=== PATIENT | male | born 1965 | race Caucasian/White ===

== ENCOUNTER 2020-06-19 09:14 | Outpatient (CLI) | payer BC, SELFPAY | END 2020-06-19 09:15 | disposition home or self-care (01) | LOC: ANHCOVIDVC 09:14 | PROVIDERS: PCP Internal Medicine | DX: Z23 Encounter for immunization (principal) | CPT/HCPCS: 0001A; 91300 ==

== ENCOUNTER 2020-07-10 09:15 | Outpatient (CLI) | payer BC, SELFPAY | END 2020-07-10 09:16 | disposition home or self-care (01) | LOC: ANHCOVIDVC 09:15 | PROVIDERS: PCP Internal Medicine | DX: Z23 Encounter for immunization (principal) | CPT/HCPCS: 0002A; 91300 ==

== ENCOUNTER 2022-06-05 18:10 | Emergency (ER) | payer BC, SELFPAY ==
[2022-06-05 18:18] VITALS: BP 136/91; PULSE 109; RESP 16; TEMP 36.4; O2SAT 97
--- NOTE | 2022-06-05 18:19 | ED.URI ---
HPI - URI/Sore Throat General Chief Complaint: Upper Respiratory Infection Stated Complaint: fever,cov pos,fatigue,cough,congestion Time Seen by Provider: 06/05/22 18:19 Source: patient Mode of arrival: ambulatory Limitations: no limitations History of Present Illness HPI Narrative: 56-year-old male presents with complaint of cough, chest congestion, postnasal drainage, fatigue, body aches starting yesterday. Afebrile. Taking any nijr-mrm-gnomzxd medications to treat his symptoms. States that he took a home COVID test today that was positive. Is concerned that the test was an accurate because it was . Patient would like and other COVID test at [facility]. He denies chest pain and shortness of breath. He has been COVID vaccinated. He last had COVID in 2019. All systems reviewed and negative except as noted above. Related Data Home Medications Medication Instructions Recorded Confirmed cholecalciferol (vitamin D3) 50 2,000 unit PO DAILY 05/20/20 01/22/22 mcg (2,000 unit) capsule Saccharomyces boulardii 250 mg 5,000 mmu cells PO DAILY 11/15/21 01/22/22 capsule (Daily Probiotic (S. boulardii)) fluticasone propionate 50 2 spray intranasal DAILY 11/15/21 01/22/22 mcg/actuation nasal spray,suspension psyllium husk 0.4 gram capsule 0.4 g PO DAILY 11/15/21 01/22/22 (Daily Fiber) Allergies Allergy/AdvReac Type Severity Reaction Status Date / Time latex Allergy Unknown Feels Verified 12/28/21 10:09 different levofloxacin Allergy Unknown Increased Verified 12/28/21 10:09 anxiety mold Allergy Unknown Unknown Verified 12/28/21 10:09 Review of Systems Review of Systems: CONSTITUTIONAL: Denies fever, chills, or sweats. EYES: Denies visual changes, redness, or discharge. ENT: Reports rhinorrhea, congestion. Denies sore throat, or otalgia. CARDIOVASCULAR: Denies chest pain, palpitations, or edema. RESPIRATORY: Denies cough or dyspnea. GASTROINTESTINAL: Denies abdominal pain, nausea, vomiting, or diarrhea. GENITOURINARY: Denies dysuria or hematuria. SKIN: Denies rash or itching. MUSCULOSKELETAL: Denies back pain, joint pain. Reports myalgia. NEUROLOGIC: Reports headache. Denies numbness, or weakness. PSYCHIATRIC: Denies anxiety or depression. All other systems reviewed are negative, except as documented in HPI. [facility] Past Medical History Medical History (Updated 06/05/22 @ 18:33 by Paula Daugherty NP) Cyst TRAVON (generalized anxiety disorder) History of skin cancer Morbid obesity Vitamin D deficiency Surgical History Surgical History (Updated 01/19/22 @ 10:06 by Siri Keita) Hx of local excision of skin lesion Excision of 2 epidermal back cysts 12/28/21. Family History Family History Father Hypertension Mother Family history of transient ischemic attacks Social History Social History Smoking status: Never smoker Alcohol intake: current Comments At time of signature, agree with nursing past medical, surgical, social and family history. There is no relevant family history pertinent to the presenting complaint. Exam Narrative: GENERAL: This is a well-nourished, well-developed patient. Patient ill-appearing but in no distress. HEAD: normocephalic, atraumatic. EYES: PERRL. Sclera clear/white. Vision is grossly intact. EARS: External ears normal, auditory canals clear and without drainage, TMs normal without perforation. Hearing grossly intact. NOSE: External nose normal with clear nasal drainage with erythema to both nares. THROAT: Mucous membranes moist, postnasal drainage. NECK: Neck supple, non-tender without lymphadenopathy, masses or thyromegaly. CARDIOVASCULAR: Regular rate and rhythm without murmurs, gallops, or rubs. RESPIRATORY: Clear to auscultation. Breath sounds equal bilaterally. No wheezes, rales, or rhonchi. SKIN: warm, Dry, intact wit
== END 2022-06-05 18:37 | disposition home or self-care (01) ==
PROVIDERS: Emergency Provider Nurse Practitioner Family; PCP Internal Medicine
DX: U07.1 COVID-19 (principal); E66.01 Morbid (severe) obesity due to excess calories; Z68.43 Body mass index [BMI] 50.0-59.9, adult; E55.9 Vitamin D deficiency, unspecified; Z85.828 Personal history of other malignant neoplasm of skin
CPT/HCPCS: 87426; 99213; C9803; G0463

== ENCOUNTER 2023-09-28 18:45 | Emergency (ER) | payer BC, SELFPAY ==
--- NOTE | 2023-09-28 18:51 | ED.URI ---
HPI - URI/Sore Throat General Chief Complaint: Upper Respiratory Infection Stated Complaint: Sinus Infection Symptoms Time Seen by Provider: 09/28/23 19:05 Source: patient, RN notes reviewed and old records reviewed Mode of arrival: ambulatory Limitations: no limitations History of Present Illness HPI Narrative: 57 year old male who presents to [facility] care with complaints of sinus congestion and chest congestion since late Monday early Monday with low grade fevers since Monday. Patient reports that he having difficulty sleeping due to congestion. Patient reports that he did home COVID test which was negative. He states that he has taken some OTC cold medication that contains Quafenasin, decongestant and also some Tylenol with no improvement in his symptoms. Patient reports that he was recently started on some low dose Lasix daily for his edema to his lower legs and feet. Patient reports no acute shortness of breath no tachypnea noted SAO2 94% on room air, reports past history of Bronchitis MD elicited complaint: fever, cough, rhinorrhea, nasal congestion and other (chest congestion ) Pertinent past history: other (Bronchitis) Onset (ago): day(s) Able to tolerate fluids by mouth: Yes Treatments prior to arrival: acetaminophen and cold medicine Related Data Home Medications Medication Instructions Recorded Confirmed cholecalciferol (vitamin D3) 50 2,000 unit PO DAILY 05/20/20 09/05/23 mcg (2,000 unit) capsule Saccharomyces boulardii 250 mg 5,000 mmu cells PO DAILY 11/15/21 09/05/23 capsule (Daily Probiotic (S. boulardii)) fluticasone propionate 50 2 spray intranasal DAILY 11/15/21 09/05/23 mcg/actuation nasal spray,suspension psyllium husk 0.4 gram capsule 0.4 g PO DAILY 11/15/21 09/05/23 (Daily Fiber) Allergies Allergy/AdvReac Type Severity Reaction Status Date / Time latex Allergy Unknown Feels Verified 09/28/23 18:55 different levofloxacin Allergy Unknown Increased Verified 09/28/23 18:55 anxiety mold Allergy Unknown Unknown Verified 09/28/23 18:55 Review of Systems Review of Systems: CONSTITUTIONAL: Reports some malaise,no chills, sweats, low grade fever. EYES: Denies visual changes, redness, or discharge. ENT: Reports rhinorrhea, congestion, sinus pain, no otalgia and no sore throat. CARDIOVASCULAR: Denies chest pain, palpitations, or edema. RESPIRATORY: Reports cough.? Denies acute dyspnea. GASTROINTESTINAL: Denies abdominal pain, nausea, vomiting, diarrhea SKIN: Denies rash or itching. MUSCULOSKELETAL: Denies myalgia. NEUROLOGIC: Denies headache. All systems reviewed & are unremarkable except as noted in HPI and below PMFSH Past Medical History Medical History (Updated 09/28/23 @ 19:30 by Dorene Patel NP) Bronchitis Cyst Elevated blood pressure reading TRAVON (generalized anxiety disorder) History of skin cancer Lower extremity edema Morbid obesity Vitamin D deficiency Surgical History Surgical History H/O removal of cyst upper back/shoulder Hx of local excision of skin lesion Excision of 2 epidermal back cysts 12/28/21. Family History Family History Father Hypertension Mother Family history of transient ischemic attacks Social History Social History Smoking status: Never smoker Alcohol intake: current Comments At time of signature, agree with nursing past medical, surgical, social and family history. There is no relevant family history pertinent to the presenting complaint Exam Narrative: GENERAL: Well-appearing, well-nourished, obese and in no acute distress. HEAD: Normocephalic EYES: PERRLA, conjunctivae clear ENT: Nares swollen, turbinates edematous and erythematous, clear discharge sinus pressure Mucous membranes moist. TM pearly caro with dull light reflex
[2023-09-28 18:59] VITALS: BP 158/94; PULSE 88; RESP 16; TEMP 36; O2SAT 94
== END 2023-09-28 19:27 | disposition home or self-care (01) ==
PROVIDERS: Emergency Provider Registered Nurse; PCP Internal Medicine
DX: J40 Bronchitis, not specified as acute or chronic (principal); E66.01 Morbid (severe) obesity due to excess calories; Z68.41 Body mass index [BMI] 40.0-44.9, adult; E55.9 Vitamin D deficiency, unspecified; Z85.828 Personal history of other malignant neoplasm of skin
CPT/HCPCS: 99213; G0463

== ENCOUNTER 2023-10-05 09:37 | Outpatient (CLI) | payer BC, SELFPAY ==
[2023-10-05 13:25] LABS: Basophils Absolute Auto 0.1 K/mm3 (0.0-0.1); Basophils Percent Auto 1.1 % (0.2-1.2); Eosinophils Absolute Auto 0.3 K/mm3 (0-0.3); Eosinophils Percent Auto 3.8 % (0-4.4); Hematocrit 44.4 % (42.0-52.0); Hemoglobin 14.7 g/dL (14.0-18.0); Immature Granulocyte Absolute 0.04 K/mm3 (0.00-0.031); Immature Granulocyte Percent A 0.6 % (0-0.5); Lymphocytes Absolute Auto 2.55 K/mm3 (0.9-3.2); Lymphocytes Percent Auto 39.2 % (18.3-44.2); Mean Corpuscular HGB Conc 33.1 g/dl (32-36); Mean Corpuscular Hemoglobin 32.5 pg (26-34); Mean Corpuscular Volume 98.2 fl (80-100); Mean Platelet Volume 9.8 fl (7.4-10.4); Monocytes Absolute Auto 0.5 K/mm3 (0.1-0.6); Monocytes Percent Auto 8.3 % (2.6-8.5); Neutrophils Absolute Auto 3.1 K/mm3 (1.3-6.7); Platelet Count Result 288 k/mm3 (150-375); Red Blood Count 4.52 M/mm3 (4.6-6.20); Red Cell Distribution Width 13.8 % (11.5-14.5); White Blood Count 6.5 K/mm3 (4.5-10.0)
[2023-10-05 13:30] LABS: Add Urine Microscopic? NO; Appearance Urine Clear (Clear); Bilirubin Urine Negative (Negative); Blood Urine Negative (Negative); Color Urine Yellow (Yellow); Glucose Urine UA Negative (Negative); Ketones Urine Negative (Negative); Leukocyte Esterase Ur Negative LEU/UL (Negative); Nitrate Urine Negative (Negative); Protein Urine Negative (Negative); Specific Grav Ur 1.018 (1.001-1.035); Urobilinogen Urine 0.2 mg/dL (<2.0); pH Urine 5.5 (5.0-9.0)
[2023-10-05 13:42] LABS: Anion Gap 11 mmol/L (4-12); Bilirubin,Total 0.7 mg/dL (0.2-1.3); Blood Urea Nitrogen 16 mg/dL (9-20); Calcium 8.9 mg/dL (8.4-10.2); Carbon Dioxide 26 mmol/L (22-30); Chloride 97 mmol/L (98-107); Estimated Glomerular Filt Rate > 60; Glucose 112 mg/dL (65-110); Potassium 4.3 mmol/L (3.4-5.0); Sodium 134 mmol/L (137-145)
[2023-10-05 13:43] LABS: Alanine Aminotransferase 48 U/L (6-50); Albumin Level 4.2 g/dL (3.5-5.1); Alkaline Phosphatase 67 U/L (38-126); Aspartate Amino Transferase 75 U/L (17-59); Cholesterol 189 mg/dL (0-200); HDL Direct 31 mg/dL; Triglycerides 175 mg/dL (<150)
[2023-10-05 13:53] LABS: LDL Cholesterol Direct 106 mg/dL
[2023-10-05 14:09] LABS: Prostate Specific Antigen 0.2 ng/mL (< OR = 4.0)
[2023-10-05 14:43] LABS: Hemoglobin A1C 6.3 % (<5.7)
[2023-10-06 08:15] LABS: LH 4.8 mIU/mL (1.5-9.3)
[2023-10-09 12:44] LABS: Testosterone Free 48.2 pg/mL (35.0-155.0); Testosterone Total 333 ng/dL (250-1100)
[2023-10-12 18:33] LABS: Apolipoprotein B 120 mg/dL
== END 2023-10-05 09:38 | disposition home or self-care (01) ==
LOC: ANHGOSHLAB 09:39
PROVIDERS: PCP Internal Medicine; Visit Provider Internal Medicine
DX: E29.1 Testicular hypofunction (principal); R60.0 Localized edema; E66.01 Morbid (severe) obesity due to excess calories; R53.83 Other fatigue; Z12.5 Encounter for screening for malignant neoplasm of prostate
CPT/HCPCS: 36415; 80053; 80061; 81003; 82172; 83002; 83036; 84153; 84402; 84403; 84443; 85025; G0103

== ENCOUNTER 2023-12-07 08:39 | Outpatient (CLI) | payer BC, SELFPAY ==
[2023-12-25 13:43] VITALS: BMI 54.8
--- NOTE | 2023-12-25 13:43 | WPDHOMESLEEP ---
Sleep Study - Home Unattended Date of Study: 12/07/23 Ordering Provider: Archie Massey DO Interpreting Provider: Miracle Gordon DO Home Sleep Study Type: Watch PAT Height: 1.93 m Weight: 204.117 kg Body Mass Index: 54.8 Neck Circumference (inches): 22 Reason for Sleep Study Daytime fatigue Sleep History The patient did not complete the sleep intake questionnaire because he did not complete the home sleep test. [facility] Past Medical History Medical History Bronchitis Cyst Elevated blood pressure reading TRAVON (generalized anxiety disorder) History of skin cancer Hyperglycemia Long-term current use of testosterone cypionate Lower extremity edema Morbid obesity Vitamin D deficiency Surgical History Surgical History H/O removal of cyst upper back/shoulder Hx of local excision of skin lesion Excision of 2 epidermal back cysts 12/28/21. Family History Family History Father Hypertension Mother Family history of transient ischemic attacks Social History Social History Smoking status: Never smoker Alcohol intake: current Current Housing: Decline to Answer Concerned About Future Housing: Decline to Answer Difficulty Paying Gas/Electric Bills: Decline to Answer Difficulty Paying for Meds: Decline to Answer Currently Unemployed: Decline to Answer Education: Decline to Answer Difficulty w/ Childcare or Family Care: Decline to Answer Medications Home Medications Medication Instructions Recorded Confirmed Type cholecalciferol (vitamin D3) 50 2,000 unit PO DAILY 05/20/20 10/10/23 History mcg (2,000 unit) capsule Saccharomyces boulardii 250 mg 5,000 mmu cells PO DAILY 11/15/21 10/10/23 History capsule (Daily Probiotic (S. boulardii)) fluticasone propionate 50 2 spray intranasal DAILY 11/15/21 10/10/23 History mcg/actuation nasal spray,suspension psyllium husk 0.4 gram capsule 0.4 g PO DAILY 11/15/21 10/10/23 History (Daily Fiber) albuterol sulfate 90 mcg/actuation 2 puff inhalation QID PRN 09/28/23 10/10/23 Rx aerosol inhaler shortness of breath or wheezing #6.7 grams testosterone cypionate 200 mg/mL 140 mg (0.7 mL) IM WEEKLY #10 mL 10/10/23 10/10/23 Rx intramuscular oil (Depo-Testosterone) furosemide 20 mg tablet 20 mg PO QAM #30 tabs 11/09/23 Rx Sleep Procedure The sleep study was completed using [employer]house[employer] a technically adequate device with seven channels: peripheral arterial tone, actigraphy, body position, snore, respiratory movement, pulse oximetry, sleep staging, and heart rate. Prior to using the device, the patient received verbal and written instructions for its application and was provided with the help desk phone number for additional telephonic instruction with 24-hour availability of qualified personnel to answer questions. The study was scored using [facility] guidelines. Sleep Architecture N/A Respiratory Analysis N/A Oximetry Data N/A Snoring Profile N/A Cardiac Profile N/A Assessment and Plan Assessment and Plan (1) Fatigue: Qualifiers: Fatigue type: chronic, unspecified Qualified Code(s): R53.82 - Chronic fatigue, unspecified Code(s): R53.83 - Other fatigue Status: Acute Assessment and Plan: The patient was unable to complete the study due to feeling claustrophobic. There was no data obtained. I recommend repeating the home sleep test in the future if his claustrophobia improves. Data The data obtained during this sleep study is adequate for interpretation. Certification This sleep study has been reviewed by a board certified sleep medicine physician.
== END 2023-12-20 14:22 | disposition home or self-care (01) ==
LOC: ANHCSM 08:39
PROVIDERS: PCP Internal Medicine; Visit Provider Internal Medicine
DX: R53.82 Chronic fatigue, unspecified (principal); G47.19 Other hypersomnia; E66.01 Morbid (severe) obesity due to excess calories; R53.83 Other fatigue
CPT/HCPCS: 99199

== ENCOUNTER 2024-02-22 14:50 | Outpatient (CLI) | payer OTHER, SELFPAY ==
[2024-02-22 19:25] LABS: Basophils Absolute Auto 0.1 K/mm3 (0.0-0.1); Eosinophils Absolute Auto 0.3 K/mm3 (0-0.3); Eosinophils Percent Auto 4.6 % (0-4.4); Hematocrit 50.9 % (42.0-52.0); Hemoglobin 17.1 g/dL (14.0-18.0); Immature Granulocyte Absolute 0.01 K/mm3 (0.00-0.031); Immature Granulocyte Percent A 0.1 % (0-0.5); Lymphocytes Absolute Auto 2.62 K/mm3 (0.9-3.2); Lymphocytes Percent Auto 36.8 % (18.3-44.2); Mean Corpuscular HGB Conc 33.6 g/dl (32-36); Mean Corpuscular Hemoglobin 32.1 pg (26-34); Mean Corpuscular Volume 95.7 fl (80-100); Mean Platelet Volume 9.6 fl (7.4-10.4); Monocytes Absolute Auto 0.6 K/mm3 (0.1-0.6); Monocytes Percent Auto 8.3 % (2.6-8.5); Neutrophils Absolute Auto 3.5 K/mm3 (1.3-6.7); Neutrophils Percent Auto 49.2 % (45.5-73.1); Platelet Count Result 281 k/mm3 (150-375); Red Blood Count 5.32 M/mm3 (4.6-6.20); Red Cell Distribution Width 13.7 % (11.5-14.5); White Blood Count 7.1 K/mm3 (4.5-10.0)
[2024-02-22 19:38] LABS: Alanine Aminotransferase 31 U/L (6-50); Albumin Level 4.2 g/dL (3.5-5.1); Alkaline Phosphatase 70 U/L (38-126); Anion Gap 1 mmol/L (4-12); Aspartate Amino Transferase 58 U/L (17-59); Bilirubin,Total 0.8 mg/dL (0.2-1.3); Blood Urea Nitrogen 15 mg/dL (9-20); Calcium 8.9 mg/dL (8.4-10.2); Carbon Dioxide 36 mmol/L (22-30); Chloride 97 mmol/L (98-107); Estimated Glomerular Filt Rate > 60; Glucose 102 mg/dL (65-110); Potassium 4.9 mmol/L (3.4-5.0); Sodium 134 mmol/L (137-145)
[2024-02-22 20:06] LABS: Prostate Specific Antigen 0.2 ng/mL (< OR = 4.0)
[2024-02-22 20:43] LABS: Hemoglobin A1C 6.1 % (<5.7)
== END 2024-02-22 14:51 | disposition home or self-care (01) ==
LOC: ANHGOSHLAB 14:54
PROVIDERS: PCP Internal Medicine; Visit Provider Internal Medicine
DX: E29.1 Testicular hypofunction (principal); Z79.890 Hormone replacement therapy; Z12.5 Encounter for screening for malignant neoplasm of prostate
CPT/HCPCS: 36415; 80053; 83036; 84153; 85025; G0103

== ENCOUNTER 2024-07-30 08:37 | Outpatient (CLI) | payer OTHER, SELFPAY ==
--- OUTSIDE RECORDS SUMMARY | 2024-07-30 08:53 | XMS_ITS | Referral Summary ---
Author Organization [facility] [place] [address] Address [address] [place] [phone] Care Team Providers Care American Sign Language Teacher Name Role Phone Archie Massey DO Primary Care Provider [phone]- [phone] Allergies Active Allergy Reactions Criticality Noted Date Comments Latex Anxiety,Eye irritation,Headache Low 04/21 Levofloxacin Anxiety Low 10/26/2021 Medications fluticasone propionate (FLONASE) 50 mcg/actuation nasal spray Administer 1 spray into each nostril daily Active vit D3-vit D-dipuhccis-pdj s [id number] muda-uye-ks-mg tablet Take by mouth Active polycarbophil (FIBERCON) 625 mg tablet Take 625 mg by mouth daily Active acidophilus-pec tin, citrus 100 million cell-10 mg capsule Take by mouth Activ e Active Problems No known active problems Social History Tobacco Use Types Packs/Day Years Used Date Smoking Tobacco: Never Smokeless Tobacco: Never Tobacco Cessation:Counseling Given: Not Answered Sex and Gender Information Value Date Recorded Sex Assigned at Not on file Legal Sex Male 10:27 AM CDT Gender Identity Male 10/26/2021 8:15 AM CDT Sexual Orientation Not on file Last Filed Vital Signs Vital Sign Reading Time Taken Comments Blood Pressure 148/90 04/09/2022 8:50 AM DEPUTY FIRE MARSHAL Pulse 92 04/09/2022 8:34 AM DEPUTY FIRE MARSHAL Temperature 36.9 C (98.4 F) 04/09/2022 8:34 AM DEPUTY FIRE MARSHAL Respiratory Rate 18 04/09/2022 8:34 AM DEPUTY FIRE MARSHAL Oxygen Saturation 96% 02/10/2022 2:17 PM DEPUTY FIRE MARSHAL Inhaled Oxygen Concentration - - Weight 215.4 kg (474 lb 14.4 oz) 04/09/2022 8:34 AM DEPUTY FIRE MARSHAL Height 193 cm (6' 3.98) 04/09/2022 8:34 AM DEPUTY FIRE MARSHAL Body Mass Index 57.84 04/09/2022 8:34 AM DEPUTY FIRE MARSHAL Plan of Treatment Not on file Insurance [employer] ACCESS CHOICE [employer] ACCESS CHOICE Care Teams American Sign Language Teacher Relationship Specialty Start Date End Date Archie Massey DO PCP - General Internal Medicine 10/26/21
--- OUTSIDE RECORDS SUMMARY | 2024-07-30 08:53 | XMS_ITS | Clinical Summary ---
Author Organization [facility] [place] [address] Address [address] [place] [phone] Care Team Providers Care Cnc Mill Set Up Operator Name Role Phone Archie Massey DO Primary Care Provider [phone]- [phone] Allergies Active Allergy Reactions Criticality Noted Date Comments Latex Anxiety,Eye irritation,Headache Low 04/21 Levofloxacin Anxiety Low 10/26/2021 Medications fluticasone propionate (FLONASE) 50 mcg/actuation nasal spray Administer 1 spray into each nostril daily Active vit D3-vit O-zavzsmqrd-hlb s [id number] ajnw-uer-qe-mg tablet Take by mouth Active polycarbophil (FIBERCON) [...] AM CDT Sexual Orientation Not on file Obstetrics History Last Filed Vital Signs Vital Sign Reading Time Taken Comments Blood Pressure 148/90 04/09/2022 8:50 AM STUDENT SERVICES ADVISOR Pulse 92 04/09/2022 8:34 AM STUDENT SERVICES ADVISOR Temperature 36.9 C (98.4 F) 04/09/2022 8:34 AM STUDENT SERVICES ADVISOR Respiratory Rate 18 04/09/2022 8:34 AM STUDENT SERVICES ADVISOR Oxygen Saturation 96% 02/10/2022 2:17 PM STUDENT SERVICES ADVISOR Inhaled Oxygen Concentration - - Weight 215.4 kg (474 lb 14.4 oz) 04/09/2022 8:34 AM STUDENT SERVICES ADVISOR Height 193 cm (6' 3.98) 04/09/2022 8:34 AM STUDENT SERVICES ADVISOR Body Mass Index 57.84 04/09/2022 8:34 AM STUDENT SERVICES ADVISOR Plan of Treatment Health Maintenance Due Date Last Done Comments Colon Cancer Screening-Colonoscopy 1964 Depression Screening 1964 Hepatitis C Screening 1964 Prostate Cancer Screening-PSA 1964 DTaP/Tdap/Td Vaccine (1 - Tdap) 12/24/1975 Hepatitis B Screening 1982 Regular Well Visit/Exam 18-64 1982 Zoster Vaccine (1 of 2) 2014 Covid-19 Vaccine ( season) 2023 01/21/2021, 07/10/2020, 06/19/2020 Influenza Vaccine (Season Ended) 2024 11/24/2022, 01/05/2021, 12/27/2019, Additional history exists Pneumococcal vaccine <65 Aged Out No longer eligible based on patient's age to complete this topic Insurance [employer] CHOICE Member Subscriber Plan / Payer (Ef fective 2021-Present) Name:Archie Cochran Relation to Subscriber:Self Name:Archie Cochran Payer ID:[id number] (NAIC) Type:[facility] Address: [facility] [address] [id number] [facility] ACCESS CHOICE Care Teams Cnc Mill Set Up Operator Relationship Specialty Start Date End Date Archie Massey DO PCP - General Internal Medicine 10/26/21
[2024-07-30 17:22] LABS: Alanine Aminotransferase 30 U/L (6-50); Albumin Level 4.3 g/dL (3.5-5.1); Alkaline Phosphatase 62 U/L (38-126); Anion Gap 11 mmol/L (4-12); Aspartate Amino Transferase 41 U/L (17-59); Basophils Absolute Auto 0.1 K/mm3 (0.0-0.1); Basophils Percent Auto 1.1 % (0.2-1.2); Bilirubin,Total 0.7 mg/dL (0.2-1.3); Blood Urea Nitrogen 20 mg/dL (9-20); Carbon Dioxide 25 mmol/L (22-30); Chloride 101 mmol/L (98-107); Eosinophils Absolute Auto 0.2 K/mm3 (0-0.3); Eosinophils Percent Auto 2.8 % (0-4.4); Estimated Glomerular Filt Rate > 60; Glucose 83 mg/dL (65-110); Hematocrit 51.2 % (42.0-52.0); Hemoglobin 16.5 g/dL (14.0-18.0); Immature Granulocyte Absolute 0.02 K/mm3 (0.00-0.031); Immature Granulocyte Percent A 0.3 % (0-0.5); Immature Platelet Fraction Pct 3.4 % (0.9-11.2); Lymphocytes Absolute Auto 2.22 K/mm3 (0.9-3.2); Lymphocytes Percent Auto 34.4 % (18.3-44.2); Mean Corpuscular HGB Conc 32.2 g/dl (32-36); Mean Corpuscular Hemoglobin 32.7 pg (26-34); Mean Corpuscular Volume 101.4 fl (80-100); Mean Platelet Volume 10.5 fl (7.4-10.4); Monocytes Absolute Auto 0.6 K/mm3 (0.1-0.6); Monocytes Percent Auto 8.8 % (2.6-8.5); Neutrophils Absolute Auto 3.4 K/mm3 (1.3-6.7); Neutrophils Percent Auto 52.6 % (45.5-73.1); Platelet Count Result 269 k/mm3 (150-375); Potassium 4.5 mmol/L (3.4-5.0); Red Blood Count 5.05 M/mm3 (4.6-6.20); Red Cell Distribution Width 14.7 % (11.5-14.5); Sodium 137 mmol/L (137-145); Total Protein 7.7 g/dL (6.3-8.2); White Blood Count 6.5 K/mm3 (4.5-10.0)
[2024-07-30 17:47] LABS: Prostate Specific Antigen 0.2 ng/mL (< OR = 4.0)
[2024-07-30 20:57] LABS: Platelet Estimate Adequate (Adequate)
[2024-07-30 20:58] LABS: Schistocytes None Seen
[2024-08-02 17:38] LABS: Testosterone Free 27.4 pg/mL (35.0-155.0); Testosterone Total 202 ng/dL (250-1100)
== END 2024-07-30 08:38 | disposition home or self-care (01) ==
LOC: ANHGOSHLAB 08:38
PROVIDERS: PCP Internal Medicine; Visit Provider Internal Medicine
DX: E29.1 Testicular hypofunction (principal); Z79.890 Hormone replacement therapy
CPT/HCPCS: 36415; 80053; 84153; 84402; 84403; 85025; 85055

== ENCOUNTER 2024-11-27 09:53 | Outpatient (CLI) | payer OTHER, SELFPAY ==
[2024-11-27 11:03] LABS: Hematocrit 51.8 % (42.0-52.0); Hemoglobin 17.3 g/dL (14.0-18.0); Immature Granulocyte Percent A 0.3 % (0-0.5); Lymphocytes Absolute Auto 2.41 K/mm3 (0.9-3.2); Mean Corpuscular HGB Conc 33.4 g/dl (32-36); Mean Corpuscular Hemoglobin 32.6 pg (26-34); Mean Corpuscular Volume 97.7 fl (80-100); Nucleated Red Blood Cells Absolute Auto 0.000 K/mm3 (0.0-0.012); Nucleated Red Blood Cells Perc 0.0 % (0.0-0.2); Platelet Count Result 290 k/mm3 (150-375); Red Blood Count 5.30 M/mm3 (4.6-6.20); White Blood Count 7.0 K/mm3 (4.5-10.0)
[2024-11-27 11:07] LABS: Alanine Aminotransferase 30 U/L (6-50); Albumin Level 4.3 g/dL (3.5-5.1); Alkaline Phosphatase 60 U/L (38-126); Anion Gap 7 mmol/L (4-12); Aspartate Amino Transferase 48 U/L (17-59); Bilirubin,Total 1.3 mg/dL (0.2-1.3); Blood Urea Nitrogen 19 mg/dL (9-20); Calcium 9.2 mg/dL (8.4-10.2); Carbon Dioxide 26 mmol/L (22-30); Chloride 100 mmol/L (98-107); Estimated Glomerular Filt Rate > 60; Glucose 110 mg/dL (65-110); Potassium 4.5 mmol/L (3.4-5.0); Sodium 133 mmol/L (137-145); Total Protein 8.1 g/dL (6.3-8.2)
[2024-11-27 12:10] LABS: Hemoglobin A1C 5.7 % (<5.7)
[2024-11-30 01:07] LABS: Free Testosterone (Direct) 10.8 pg/mL (7.2-24.0)
== END 2024-11-27 09:54 | disposition home or self-care (01) ==
LOC: ANHGOSHLAB 09:54
PROVIDERS: PCP Internal Medicine; Visit Provider Nurse Practitioner
DX: E29.1 Testicular hypofunction (principal); R73.03 Prediabetes
CPT/HCPCS: 36415; 80053; 83036; 84402; 84403; 85025

== ENCOUNTER 2024-12-10 08:53 | Outpatient (NON) | payer OTHER, SELFPAY ==
--- NOTE | 2024-12-10 | S_PTH ---
PATIENT: Archie Cochran LOC: AN[facility]AB #:[id number] AGE/SX: 58/M ROOM: RE12/10/[address]: To Hernandez MD : 1965 BED: DIS: 12/10/2024 SPEC #: [id number] RECD: 12/12/24 09:04 STATUS: CRISTOBAL CLAYTON #: [id number] LEATHA: 12/10/24 00:[address]: To Hernandez DEPT: [facility] Surgical RECD BY: Karen Mo ENTERED: 12/12/24 09:06 SP TYPE: Surgical OTHR DR: Archie Massey DO Tissues: A - Skin Procedures: Hematoxylin and Eosin Stain Gross and Microscopic Level 4
--- OUTSIDE RECORDS SUMMARY | 2024-12-12 09:08 | XMS_ITS | Clinical Summary ---
Author Organization [facility] [place] [address] Address [address] [place] [phone] Care Team Providers Care Open Hearth Worker Name Role Phone Archie Massey DO Primary Care Provider Allergies Active Allergy Reactions Criticality Noted Date Comments Latex Anxiety,Eye irritation,Headache Low 04/21 Levofloxacin Anxiety Low 10/26/2021 Medications fluticasone propionate (FLONASE) 50 mcg/actuation nasal spray Administer 1 spray into each nostril daily Active vit D3-vit V-hhperzzrk-olr s [id number] ohoa-cha-hz-mg tablet Take by mouth Active polycarbophil (FIBERCON) [...] Comments Blood Pressure 148/90 04/09/2022 8:50 AM DRAPERY MAKER Pulse 92 04/09/2022 8:34 AM DRAPERY MAKER Temperature 36.9 C (98.4 F) 04/09/2022 8:34 AM DRAPERY MAKER Respiratory Rate 18 04/09/2022 8:34 AM DRAPERY MAKER Oxygen Saturation 96% 02/10/2022 2:17 PM DRAPERY MAKER Inhaled Oxygen Concentration - - Weight 215.4 kg (474 lb 14.4 oz) 04/09/2022 8:34 AM DRAPERY MAKER Height 193 cm (6' 3.98) 04/09/2022 8:34 AM DRAPERY MAKER Body Mass Index 57.84 04/09/2022 8:34 AM DRAPERY MAKER Plan of Treatment Health Maintenance Due Date Last Done Comments Colon Cancer Screening-Colonoscopy 1964 Depression Screening 1964 Hepatitis C Screening 1964 Prostate Cancer Screening-PSA 1964 DTaP/Tdap/Td Vaccine (1 - Tdap) 12/24/1975 Hepatitis B Screening 1982 Regular Well Visit/Exam 18-64 1982 Zoster Vaccine (1 of 2) 2014 Covid-19 Vaccine ( season) 2024 01/21/2021, 07/10/2020, 06/19/2020 Influenza Vaccine (#1) 2024 3, 01/05/2021, 12/27/2019, Additional history exists Pneumococcal vaccine <65 Aged Out No longer eligible based on patient's age to complete this topic Insurance [employer] CHOICE [employer] ACCESS CHOICE Care Teams Open Hearth Worker Relationship Specialty Start Date End Date Archie Massey DO PCP - General Internal Medicine 10/26/21
== END 2024-12-10 08:54 | disposition home or self-care (01) ==
PROVIDERS: PCP Internal Medicine; Visit Provider Otolaryngology
DX: C44.212 Basal cell carcinoma of skin of right ear and external auricular canal (principal); H61.91 Disorder of right external ear, unspecified
CPT/HCPCS: 88305

== ENCOUNTER 2024-12-25 09:09 | Outpatient (CLI) | payer OTHER, SELFPAY ==
--- OUTSIDE RECORDS SUMMARY | 2024-12-25 09:47 | XMS_ITS | Clinical Summary ---
Author Organization [facility] [place] [address] Address [address] [place] [phone] Care Team Providers Care Portable Sawmill Operator Name Role Phone Archie Massey DO Primary Care Provider Allergies Active Allergy Reactions Criticality Noted Date Comments Latex Anxiety,Eye irritation,Headache Low 04/21 Levofloxacin Anxiety Low 10/26/2021 Medications fluticasone propionate (FLONASE) 50 mcg/actuation nasal spray Administer 1 spray into each nostril daily Active vit D3-vit D-vqzzfzwyv-odr s [phone] pgvx-bbi-lb-mg tablet Take by mouth Active polycarbophil (FIBERCON) [...] Comments Blood Pressure 148/90 04/09/2022 8:50 AM SLOT MACHINE KEY PERSON Pulse 92 04/09/2022 8:34 AM SLOT MACHINE KEY PERSON Temperature 36.9 C (98.4 F) 04/09/2022 8:34 AM SLOT MACHINE KEY PERSON Respiratory Rate 18 04/09/2022 8:34 AM SLOT MACHINE KEY PERSON Oxygen Saturation 96% 02/10/2022 2:17 PM SLOT MACHINE KEY PERSON Inhaled Oxygen Concentration - - Weight 215.4 kg (474 lb 14.4 oz) 04/09/2022 8:34 AM SLOT MACHINE KEY PERSON Height 193 cm (6' 3.98) 04/09/2022 8:34 AM SLOT MACHINE KEY PERSON Body Mass Index 57.84 04/09/2022 8:34 AM SLOT MACHINE KEY PERSON Plan of Treatment Health Maintenance Due Date [...] patient's age to complete this topic Insurance [employer] [facility] Address: [facility] [id number] [place] [address] [employer] ACCESS CHOICE [facility] Address: [place] [address] Care Teams Portable Sawmill Operator Relationship Specialty Start Date End Date Archie Massey DO PCP - General Internal Medicine 10/26/21
--- OUTSIDE RECORDS SUMMARY | 2024-12-25 09:47 | XMS_ITS | Clinical Summary ---
Author Organization [facility] Address [facility] [place] [address] Care Team Providers Care Ultrasound Applications Specialist Name Role Phone Unavailable Primary Care Provider Unavailabl e Source Comments [facility] Affiliates and Associated Physician Practices is amultiple site organization consisting of ambulatory clinics and hospital sitesin [place], [place], [place] and [place]. This disclosure is being madepursuant to the Care Everywhere program and may not contain all information available regarding this patient. Last updated 17.[facility] Encounters Date Type Department Care Team Description 12/24/2024 Telephone [facility] [address] [place] [address] Kj Martinez MD Appointment 12/17/2024 Telephone [facility] [address] [place] [address] Kj Martinez MD Referral from Last 3 Months Social History Tobacco Use Types Packs/Day Years Used Date Smoking Tobacco: Never Assessed Sex and Gender Information Value Date Recorded Sex Assigned at Not on file Legal Sex Male 5:11 PM SOFTWARE ENGINEERING ASSOCIATE MANAGER Gender Identity Not on file Sexual Orientation Not on file Plan of Treatment Upcoming Encounters Date Type Department Care Team (Late st Contact Info) Description 01/15/2025 10:30 AM SOFTWARE ENGINEERING ASSOCIATE MANAGER Office Visit [facility] [address] [place] [address] [place] [address] [place] [address] [address] [place] [address] Health Maintenance Due Date Last Done Comments COLON MONITORING 1965 COLONOSCOPY - COLON CA SCREENING 1964 CT COLONOGRAPHY - COLON CA SCREENING 1964 FIT - COLON CA SCREENING 1964 FLEX SIG - COLON CA SCREENING 1964 LIPID TESTING 1964 HIV SCREENING 12/24/1979 HEPATITIS C SCREENING 12/19/1982 DTAP/TDAP/TD VACCINES (1 - Tdap) 12/24/1983 PNEUMOCOCCAL VACCINE 50+ (1 of 1 - PCV) 2014 ZOSTER VACCINE (1 of 2) 2014 DEPRESSION SCREENING 02/21/2024 COVID-19 VACCINE ( - season) 2024 01/21/2021, 07/10/2020, 06/19/2020 INFLUENZA VACCINE (#1) 2024 , 01/05/2021, 12/27/2019, Additional history exists COLOGUARD (AGES 45-75) - COLON CA SCREENING 10/09/2026 10/10/2023 Colorectal Cancer Screening 10/09/2026 Respiratory Syncytial Virus (RSV) Vaccine Pt: or over 60 yrs (1 - 1-dose 75+ series) 12/24/2039 HEPATITIS B VACCINE Aged Out No longe r eligible based on patient's age to complete this topic HIB VACCINE Aged Out No longer eligi ble based on patient's age to complete this topic HPV VACCINE Aged Out No longer eligi ble based on patient's age to complete this topic MENINGOCOCCAL (Group B) VACCINE SHARED DECISION-MAKING Aged Out No longer eligible based on patient's age to complete this topic MENINGOCOCCAL GROUPS A/C/Y/W VACCINE Aged Out No longer eligible based on patient's age to complete this topic Insurance [facility] SELF PAY NO INSURANCE Member Subscriber Plan / Payer (Ef fective for All Dates) Name:Kimberley Reyna Member ID:Not on file Relation to Subscriber:Not on file Name:KIMBERLEY REYNA Subscriber ID:Not on file (Home) Address: [address] [place] [address] [place] [address] Payer ID:Not on file Group ID:Not on file Type:Self Pay Address: [place], [place]
--- OUTSIDE RECORDS SUMMARY | 2024-12-25 09:47 | XMS_ITS | Encounter Summary ---
Author Organization [facility] Address [address] [place], [place] [address] [address] Care Team Providers Care Senior Corporate Recruiter Name Role Phone Unavailable Primary Care Provider Unavailabl e Reason for Visit * Reason Onset Date Comments Appointment 12/24/2024 Encounter Details Date Type Department Care Team ([facility] Contact Info) Description 12/24/2024 Telephone [facility] [address] [place] [phone] Kj Martinez MD [address] [place] [address] [address] [place] [address] Appointment Social History Tobacco Use Types Packs/Day Years Used Date Smoking Tobacco: Never Assessed Sex and Gender Information Value Date Recorded Sex Assigned at Not on file Legal Sex Male 5:11 PM [employer] Gender Identity Not on file Sexual Orientation Not on file documented as of this encounter Miscellaneous Notes * Telephone Encounter - Santosh Mccann RN - 12/24/2024 9:53 AM CST LVM for pt to call H&N line to schedule appt. M TENENS PSYCHIATRIST documented in this encounter Plan of Treatment Upcoming Encounters Date Type Department Care Team (Late Contact Info) Description 01/15/2025 10:30 AM [facility] [employer] [facility] Office Visit [facility] [address] [place] [phone] Kj Martinez MD [address] [facility] [address] [place] [address] documented as of this encounter Visit Diagnoses Not on filedocumented in this encounter
[2024-12-31 14:40] VITALS: BMI 56.0
--- NOTE | 2024-12-31 14:40 | WPDHOMESLEEP ---
Sleep Study - Home Unattended Date of Study: 12/25/24 Ordering Provider: Archie Massey DO Interpreting Provider: Miracle Gordon DO Home Sleep Study Type: Watch PAT Height: 1.93 m Weight: 208.652 kg Body Mass Index: 56.0 Neck Circumference (inches): 20 Bevier: 10 Reason for Sleep Study Daytime hypersomnia Sleep History The patient is a 59-year-old male that had a sleep study ordered by his primary care physician for evaluation of sleep apnea. The patient rarely awakens from sleep short of breath. He occasionally awakens at night with heartburn, belching or cough. He frequently snores and is occasionally loud enough that others complain. He occasionally has trouble sleeping when he has a cold. He denies waking up gasping for air throughout the night. He rarely has breathing problems at night observed by himself or others. He denies sweating excessively at night. He denies having heart palpitations or irregular heartbeats during the night. He rarely falls asleep during the day and never while driving. He denies sleep paralysis, cataplexy and hypnagogic/ hypnopompic hallucinations. He rarely has trouble at school or work due to sleepiness. He denies feeling afraid of going to sleep. He denies having nightmares. He occasionally remembers his dreams. He rarely has thoughts racing through his mind. He rarely feels sad or depressed. He occasionally has anxiety. He rarely has muscular tension. He denies noticing parts of his body jerk. He denies kicking during the night. He rarely has crawling and aching feelings in his legs and rarely has leg pain during the night. He denies grinding his teeth during sleep but occasionally awakens with morning jaw pain. He is rarely bothered by pain during the day and rarely awakened by pain during the night. He occasionally wakes up feeling stiff in the morning. He occasionally wakes up with sore or achy muscles. He rarely wakes up with pain in the neck, spine and other joints. He goes to bed at midnight every night. It takes him 15-20 minutes to fall asleep. He wakes up 3 times throughout the night to urinate is able to fall back asleep within 10 minutes. He wakes up at 7:30 a.m. on weekdays and 8:30 a.m. on the weekends. He typically gets 6 hours of sleep per night. He will stay in bed for 10 minutes after waking up in the morning. He currently lives with his and 2 children. He denies consuming any caffeinated beverages within 2 hours of bedtime. He denies engaging in physical exercise before bedtime. He denies reading before falling asleep. He will watch television before falling asleep. He denies taking naps during the day. He consumes 2 cups of coffee every day. He consumes 2 alcoholic beverages per week. He denies tobacco and recreational drug use. [facility] Past Medical History Medical History Hyperglycemia Long-term current use of testosterone cypionate Bronchitis Elevated blood pressure reading Lower extremity edema History of skin cancer Cyst Morbid obesity TRAVON (generalized anxiety disorder) Vitamin D deficiency Surgical History Surgical History H/O removal of cyst upper back/shoulder Hx of local excision of skin lesion Excision of 2 epidermal back cysts 12/28/21. Family History Family History Father Hypertension Mother Family history of transient ischemic attacks Social History Social History Smoking status: Never smoker Alcohol intake: current Current Housing: Decline to Answer Concerned About Future Housing: Decline to Answer Difficulty Paying Gas/Electric Bills: Decline to Answer Difficulty Paying for Meds: Decline to Answer Currently Unemployed: Decline to Answer Education: Decline to Answer Difficulty w/ Childcare or Family Care: Decline to Answer Medications Home Medications ?Medication ?Instructions ?Recorded ?Confirmed ?Type cholecalciferol (vitamin D3) 50 2,000 unit PO DAILY 05/20/20 12/10/24 History mcg (2,000 unit) capsule Saccharomyces boulardii 250 mg 5,000 mmu cells PO DAILY 11/15/21 12/10/24 History capsule (Daily Probiotic (S. boulardii)) fluticasone propionate 50 2 spray intranasal DAILY 11/15/21 12/10/24 History mcg/actuation nasal spray,suspension psyllium husk 0.4 gram capsule 0.4 g PO DAILY 11/15/21 12/10/24 History (Daily Fiber) albuterol sulfate 90 mcg/actuation 2 puff inhalation QID PRN 12/03/24 12/10/24 Rx aerosol inhaler shortness of breath or wheezing #8.5 grams testosterone cypionate 200 mg/mL 180 mg (0.9 mL) IM WEEKLY #10 mL 12/03/24 12/10/24 Rx intramuscular oil (Depo-Testosterone) tirzepatide (weight loss) 2.5 2.5 mg (0.5 mL) subcut WEEKLY #2 mL 12/15/24 Rx mg/0.5 mL subcutaneous pen injector (Zepbound) losartan 50 mg tablet 50 mg PO DAILY #90 tabs 12/23/24 Rx Sleep Procedure The sleep study was completed using [employer] SignatureT a technically adequate device with seven channels: peripheral arterial tone, actigraphy, body position, snore, respiratory movement, pulse oximetry, sleep staging, and heart rate. Prior to using the device, the patient received verbal and written instructions for its application and was provided with the help desk phone number for additional telephonic instruction with 24-hour availability of qualified personnel to answer questions. The study was scored using CMS guidelines. Sleep Architecture The total recording time is 8 hrs, 6 min. The total sleep time is 4 hrs, 48 min. Sleep latency is 18 minutes. REM latency is 53 minutes. The patient had 8 episodes of waking. Sleep architecture shows 3.5% deep sleep, 76.3% light sleep, and (as % Total Sleep Time) showed NREM (Light 76.3%; Deep 3.5%), and a 20.3% stage REM. The patient spent 88.6% of total sleep time in the supine position. Sleep efficiency was 59.26. Respiratory Analysis The overall AHI (pAHI 4%:) is 57.9. The overall AHI (pAHI 3%:) is 65.2. The central AHI is 5.6. The AHI was 68.6 in NREM and 53.1 in REM sleep. The AHI was 63.4 in Supine and 79.1 in Non-supine sleep. Percent of Tommy Wayne respirations is 0.0. Oximetry Data The oxygen desaturation index (JAVIER 4%:) is 47.2. The mean saturation is 90%, and the lowest saturation is 69%. Time spent with saturation < 88% is 51.4 minutes. Snoring Profile Snoring average intensity is 43 dB. The patient snored above 45 decibels for 66.2 minutes, 22.9% of sleep time. Cardiac Profile The average pulse rate is 65 beats per minutes. The lowest pulse rate is 39 bpm. The highest pulse rate reported is 97 bpm. Atrial fibrillation was not detected. Premature beats occur 3.7 per minute. Assessment and Plan Assessment and Plan (1) AHSAN (obstructive sleep apnea): Code(s): G47.33 - Obstructive sleep apnea (adult) (pediatric) Status: Acute Assessment and Plan: The patient had an overall AHI of 57.9 with desaturation down to 69%. This is consistent with severe sleep apnea. The patient spent 51.4 minutes with an oxygen saturation below 88%. The patient had a central apnea index of 5.6, which is elevated (normal <5). due to the severity of the patient's sleep apneas well as the elevated central apnea index, he is not a candidate for AutoPAP. I recommend that the patient have a CPAP titration study with the use of a hypnotic to ensure we obtain enough sleep data and find an optimal pressure setting. I recommend that the patient have an echocardiogram to rule out cardiogenic causes for an elevated central apnea index. Data The data obtained during this sleep study is adequate for interpretation. Certification This sleep study has been reviewed by a board certified sleep medicine physician.
== END 2024-12-26 12:34 | disposition home or self-care (01) ==
LOC: ANHCSM 09:13
PROVIDERS: PCP Internal Medicine; Visit Provider Internal Medicine
DX: G47.19 Other hypersomnia (principal); E66.01 Morbid (severe) obesity due to excess calories; R53.82 Chronic fatigue, unspecified; G47.33 Obstructive sleep apnea (adult) (pediatric)
CPT/HCPCS: 95800